=== PATIENT | female | born 1995 | race African-American/Black ===

== ENCOUNTER 2016-07-10 07:24 | Emergency (ER) | payer OTHER ==
[2016-07-10 08:37] LABS: BASO % 0.4 % (0.0-1.0); EOS # 0.4 K/mm3 (0.0-0.50); LARGE UNSTAINED CELL # 0.1 K/mm3 (0.0-0.4); LYMPH % 21.2 % (24.0-44.0); MEAN CORPUSCULAR HEMOGLOBIN 25.3 pg (27.0-33.0); MEAN CORPUSCULAR HGB CONC 31.5 g/dl (32.0-36.5); MEAN CORPUSCULAR VOLUME 80.4 fl (80.0-96.0); MONO # 0.5 K/mm3 (0.0-0.8); MONO % 5.4 % (0.0-5.0); NEUTROPHILS % 67.9 % (36.0-66.0); PLATELET COUNT, AUTOMATED 360 k/mm3 (150-450); WHITE BLOOD COUNT 8.9 K/mm3 (4.0-10.0)
[2016-07-10 08:57] LABS: ALBUMIN 4.1 GM/DL (3.2-5.2); ALBUMIN/GLOBULIN RATIO 0.91 (1.00-1.93); ALKALINE PHOSPHATASE 68 U/L (45-117); ALT/SGPT 23 U/L (12-78); ANION GAP 9 MEQ/L (8-16); AST/SGOT 14 U/L (15-37); BILIRUBIN,DIRECT 0.2 MG/DL (0.0-0.2); BILIRUBIN,TOTAL 1.1 MG/DL (0.2-1.0); BLOOD UREA NITROGEN 13 MG/DL (7-18); CALCIUM LEVEL 9.2 MG/DL (8.5-10.1); CARBON DIOXIDE LEVEL 26 MEQ/L (21-32); CHLORIDE LEVEL 107 MEQ/L (98-107); CREATININE FOR GFR 0.76 MG/DL (0.55-1.02); GLUCOSE, FASTING 82 MG/DL (70-105); POTASSIUM SERUM 3.6 MEQ/L (3.5-5.1); SODIUM LEVEL 142 MEQ/L (136-145); TOTAL PROTEIN 8.6 GM/DL (6.4-8.2)
--- NOTE | 2016-07-10 10:11 | REP ---
Pelvic ultrasound including transabdominal, endovaginal and Doppler ultrasound assessment, emergency room request: The there are no comparisons. The there is no fluid in the urinary bladder, therefore the transabdominal images are suboptimal. On the transvaginal images the uterus is retroverted and normal size measuring 8.9 x 5.8 x 7.3 cm. The endometrium borderline thickened measuring 12 mm. with a heterogeneous appearance, likely hyperplasia. The ovaries are normal size. Right ovary is 3.6 x 3.0 x 3.9 cm. Left ovary is 1.8 x 2.3 x 1.8 cm. There is a right ovarian 2.6 cm cyst. There is no dominant mass or cyst in the left ovary. There is vascular flow in both ovaries with the Doppler resistive index of the intraparenchymal arteries on the right measuring 0.53. Nonetheless 0.44. There is a trace of free fluid adjacent to the ovaries. Signed by Lavell Castaneda MD 07/10/2016 10:03 A
--- NOTE | 2016-07-10 11:35 | EDDOCDS ---
Nurse's Notes [facility] Name: Kaia Senior Age: 20 yrs Sex: Female : 1995 Arrival Date: 07/10/2016 Time: 07:24 Bed 7 Private MD: Diagnosis: Other specified abnormal uterine and vaginal bleeding;Unspecified complication following complete or unspecified spontaneous Presentation: 07/10 07:52 Presenting complaint: Patient states: Vaginal bleeding since having an one dwg week ago, this AM started passing large clots and pelvic pain since last night. Adult Sepsis Screening: The patient does not have new or worsening altered mentation. Patient's respiratory rate is less than 22. Systolic blood pressure is greater than 100. Patient has a qSOFA score of 0- Negative Sepsis Screen. Suicide/Homicide risk assessment- the patient denies having any suicidal and/or homicidal ideations and does not present with any other emotional, behavioral or mental health complaints. 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 Transition of care: patient was received from Sick call on [place]. 07:52 Acuity: ELENITA Level 3 dwg 07:52 Method Of Arrival: Walkin/Carried/Asstd dwg Triage Assessment: 07:55 General: Appears in no apparent distress. Pain: Pain currently is 5 out of 10 on a pain dwg scale. Pt Declines HIV testing. 11:34 GI: Reports none. 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 none - PMHx: none; - PSHx: 07/03/16; - Social history: Smoking status: Patient states was never smoker of tobacco. No barriers to communication noted, The patient speaks fluent Chilean. - Family history: Not pertinent. - : The pt / caregiver states he / she is not on anticoagulants. Home medication list is obtained from the patient. - Exposure Risk Screening:: None identified. Screenin:34 Screening information is obtained from the patient. Fall risk: No risks identified. jo3 Assistance ADL's: requires no assistance with activities of daily living. Abuse/DV Screen: The patient / caregiver reports he/she is: not in a situation that causes fear, pain or injury. Nutritional screening: No deficits noted. Advance Directives: There is no active DNR order. home support is adequate. Assessment: 08:10 General: Appears comfortable, well developed, well nourished, well groomed, Behavior is kcs cooperative, pleasant. Pain: Location: abdomen. Neurological: Level of Consciousness is awake, alert. Respiratory: Airway is patent Respiratory effort is even, unlabored, Respiratory pattern is regular, symmetrical. Derm: Skin is intact, is healthy with good turgor, Skin is dry, Skin is pink, warm & dry. normal. 08:10 GI: Abdomen is flat, Bowel sounds present X 4 quads. Abd is soft and non tender X 4 kcs quads. 09:20 General: Appears in no apparent distress, comfortable, well developed, well nourished, jo3 well groomed, Behavior is appropriate for age, cooperative, pleasant. General: Taken to ultrasound at this time . Neurological: Level of Consciousness is awake, alert. Respiratory: Airway is patent Respiratory effort is even, unlabored. Derm: Skin Skin is pink, warm & dry. 10:20 Reassessment: Patient appears in no apparent distress at this time. Patient denies pain jo3 at this time. Resting on stretcher following pelvic exam. tolerated well. Awaiting results for disposition at this time. Aware of plan of care . 11:33 General: Appears in no apparent distress, comfortable, well developed, well nourished, jo3 well groomed, Behavior is appropriate for age, cooperative, pleasant. Neurological: Level of Consciousness is awake, alert, Oriented to person, place, time. Respiratory: Airway is patent Respiratory effort is even, unlabored. Derm: Skin is pink, warm & dry. Vital Signs: 07:55 BP 129 / 78; Pulse 97; Resp 20; Temp 98.9(O); Pulse Ox 97% on R/A; Weight 53.52 kg; dwg Height 5 ft. 7 in. (170.18 cm); Pain 6/10; 11:33 BP 122 / 74; Pulse 84; Resp 16; Temp 98.4(O); Pulse Ox 98% on R/A; Pain 0/10; ml6 07:55 Body Mass Index 18.48 (53.52 kg, 170.18 cm) [facility] Vitals: 07:55 Log In Time: July 10, 2016 at 07:26. [facility] ED Course: 07:26 Patient visited by Portillo, Barby, Reg. hs2 07:26 Patient moved to Waiting hs2 07:51 Patient moved to Triage 1 dwg 07:55 Triage Initiated dwg 07:58 Patient moved to 7 dwg 08:20 Basic Metabolic Profile Sent. kcs 08:20 CBC with Diff Sent. kcs 08:20 Lipase Sent. kcs 08:20 Liver Profile Sent. kcs 08:34 Fara Truong MD is Attending Physician. fg 08:34 Patient visited by Fara Truong MD. fg 09:13 Patient visited by Kimberly Pacheco PCA. ct3 09:23 Patient moved to Ultrasound am10 09:26 Report given to Eleanor Howard RN. kcs 09:35 Patient visited by Bridgett Howard RN. jo3 09:36 Urinalysis Sent. dem1 09:36 Urine Culture Sent. dem1 09:40 Patient moved to 7 dem1 09:49 Patient name changed from Kaia\S\\S\Flagler\S\ to Kaia\S\Shayon\S\Nadeen. EDMS 09:50 [facility] Payment Agreement was scanned into [facility] and attached to record. lg 10:15 Assist provider with pelvic exam: Set up pelvic tray. Specimens sent to lab. Performed jo3 by Fara Truong MD Patient tolerated well. 10:17 -US Pelvic Non-Ob Complete Returned. EDMS 10:34 The patient / caregiver is instructed regarding the plan of care and ED course. jo3 10:35 Patient visited by Bridgett Howard,BEBO. jo3 11:10 Patient visited by Kimberly Pacheco PCA. ct3 11:10 Lavell Foster MD is Referral Physician. fg 11:33 Discontinued IV bleeding controlled, pressure dressing applied, No redness/swelling at ml6 site. Order Results: Lab Order: Basic Metabolic Profile; SPEC'M 07/10/16 08:14 Test: GLUCOSE, FASTING; Value: 82; Range: 70-105; Units: MG/DL; Status: F Test: BLOOD UREA NITROGEN; Value: 13; Range: 7-18; Units: MG/DL; Status: F Test: CREATININE FOR GFR; Value: 0.76; Range: 0.55-1.02; Units: MG/DL; Status: F Test: SODIUM LEVEL; Value: 142; Range: 136-145; Units: MEQ/L; Status: F Test: POTASSIUM SERUM; Value: 3.6; Range: 3.5-5.1; Units: MEQ/L; Status: F Test: CHLORIDE LEVEL; Value: 107; Range: 98-107; Units: MEQ/L; Status: F Test: CARBON DIOXIDE LEVEL; Value: 26; Range: 21-32; Units: MEQ/L; Status: F Test: ANION GAP; Value: 9; Range: 8-16; Units: MEQ/L; Status: F Test: CALCIUM LEVEL; Value: 9.2; Range: 8.5-10.1; Units: MG/DL; Status: F Lab Order: CBC with Diff; SPEC'M 07/10/16 08:14 Test: WHITE BLOOD COUNT; Value: 8.9; Range: 4.0-10.0; Units: K/mm3; Status: F Test: RED BLOOD COUNT; Value: 4.41; Range: 4.00-5.40; Units: M/mm3; Status: F Test: HEMOGLOBIN; Value: 11.2; Range: 12.0-16.0; Abnormal: Below low normal; Units: g/dl; Status: F Test: HEMATOCRIT; Value: 35.5; Range: 36.0-47.0; Abnormal: Below low normal; Units: %; Status: F Test: MEAN CORPUSCULAR VOLUME; Value: 80.4; Range: 80.0-96.0; Units: fl; Status: F Test: MEAN CORPUSCULAR HEMOGLOBIN; Value: 25.3; Range: 27.0-33.0; Abnormal: Below low normal; Units: pg; Status: F Test: MEAN CORPUSCULAR HGB CONC; Value: 31.5; Range: 32.0-36.5; Abnormal: Below low normal; Units: g/dl; Status: F Test: RED CELL DISTRIBUTION WIDTH; Value: 16.0; Range: 11.5-14.5; Abnormal: Above high normal; Units: %; Status: F Test: PLATELET COUNT, AUTOMATED; Value: 360; Range: 150-450; Units: k/mm3; Status: F Test: NEUTROPHILS %; Value: 67.9; Range: 36.0-66.0; Abnormal: Above high normal; Units: %; Status: F Test: LYMPH %; Value: 21.2; Range: 24.0-44.0; Abnormal: Below low normal; Units: %; Status: F Test: MONO %; Value: 5.4; Range: 0.0-5.0; Abnormal: Above high normal; Units: %; Status: F Test: EOS %; Value: 4.0; Range: 0.0-3.0; Abnormal: Above high normal; Units: %; Status: F Test: BASO %; Value: 0.4; Range: 0.0-1.0; Units: %; Status: F Test: LARGE UNSTAINED CELL %; Value: 1.0; Range: 0.0-4.0; Units: %; Status: F Test: NEUTROPHILS #; Value: 6.0; Range: 1.8-7.7; Units: K/mm3; Status: F Test: LYMPH #; Value: 2.0; Range: 1.5-6.5; Units: K/mm3; Status: F Test: MONO #; Value: 0.5; Range: 0.0-0.8; Units: K/mm3; Status: F Test: EOS #; Value: 0.4; Range: 0.0-0.50; Units: K/mm3; Status: F Test: BASO #; Value: 0.0; Range: 0.0-0.2; Units: K/mm3; Status: F Test: LARGE UNSTAINED CELL #; Value: 0.1; Range: 0.0-0.4; Units: K/mm3; Status: F Lab Order: Lipase; SPEC'M 07/10/16 08:14 Test: LIPASE; Value: 162; Range: 73-393; Units: U/L; Status: F Lab Order: Liver Profile; SPEC'M 07/10/16 08:14 Test: AST/SGOT; Value: 14; Range: 15-37; Abnormal: Below low normal; Units: U/L; Status: F Test: ALT/SGPT; Value: 23; Range: 12-78; Units: U/L; Status: F Test: ALKALINE PHOSPHATASE; Value: 68; Range: 45-117; Units: U/L; Status: F Test: BILIRUBIN,TOTAL; Value: 1.1; Range: 0.2-1.0; Abnormal: Above high normal; Units: MG/DL; Status: F Test: BILIRUBIN,DIRECT; Value: 0.2; Range: 0.0-0.2; Units: MG/DL; Status: F Test: TOTAL PROTEIN; Value: 8.6; Range: 6.4-8.2; Abnormal: Above high normal; Units: GM/DL; Status: F Test: ALBUMIN; Value: 4.1; Range: 3.2-5.2; Units: GM/DL; Status: F Test: ALBUMIN/GLOBULIN RATIO; Value: 0.91; Range: 1.00-1.93; Abnormal: Below low normal; Status: F Lab Order: Urinalysis; SPEC'M 07/10/16 09:32 Test: APPEARANCE, URINE; Value: HAZY; Range: CLEAR; Status: F Test: COLOR, URINE; Value: YELLOW; Range: YELLOW; Status: F Test: PH,URINE; Value: 7.0; Range: 5.0-9.0; Units: UNITS; Status: F Test: SPECIFIC GRAVITY URINE AUTO; Value: 1.020; Range: 1.002-1.035; Status: F Test: PROTEIN, URINE AUTO; Value: NEGATIVE; Range: NEGATIVE; Units: mg/dL; Status: F Test: GLUCOSE, URINE (UA) AUTO; Value: NEGATIVE; Range: NEGATIVE; Units: mg/dL; Status: F Test: KETONE, URINE AUTO; Value: NEGATIVE; Range: NEGATIVE; Units: mg/dL; Status: F Test: UROBILINOGEN, URINE AUTO; Value: 2.0; Range: 0.0-2.0; Abnormal: Above high normal; Units: mg/dL; Status: F Test: BILIRUBIN, URINE AUTO; Value: NEGATIVE; Range: NEGATIVE; Status: F Test: NITRITE, URINE AUTO; Value: NEGATIVE; Range: NEGATIVE; Status: F Test: LEUKOCYTE ESTERASE, URINE AUTO; Value: NEGATIVE; Range: NEGATIVE; Status: F Test: BLOOD, URINE BLOOD; Value: 2+; Range: NEGATIVE; Abnormal: Above high normal; Status: F Test: WBC, URINE AUTO; Value: 2; Range: 0-3; Units: /HPF; Status: F Test: RBC, URINE AUTO; Value: 55; Range: 0-3; Abnormal: Above high normal; Units: /HPF; Status: F Test: BACTERIA, URINE AUTO; Value: NEGATIVE; Range: NEGATIVE; Status: F Test: SQUAMOUS EPITHELIAL CELL UR AU; Value: 1; Range: 0-6; Units: /HPF; Status: F Test: MUCUS, URINE; Value: SMALL; Range: NEGATIVE; Status: F Test: HYALINE CAST, URINE AUTO; Value: 0; Range: 0-1; Units: /LPF; Status: F Test: AMORPHOUS SEDIMENT; Value: SMALL; Range: NEGATIVE; Abnormal: Above high normal; Status: F Lab Order: Wet Prep; SPEC'M 07/10/16 10:26 Test: WET PREP; Value: WET PREP RESULT; Status: F Test: WET PREP; Value: MANY RBC; Status: F Test: WET PREP; Value: FEW EPITHELIAL CELLS PRESENT; Status: F Test: WET PREP; Value: FEW WBC; Status: F Radiology Order: -US Pelvic Non-Ob Complete Test: -US Pelvic Non-Ob Complete REASON FOR EXAMINATION: Abdomen Pain; Pelvic ultrasound including transabdominal, endovaginal and Doppler ultrasound; assessment, emergency room request:; ; The there are no comparisons.; ; The there is no fluid in the urinary bladder, therefore the transabdominal images; are suboptimal.; ; On the transvaginal images the uterus is retroverted and normal size measuring; 8.9 x 5.8 x 7.3 cm.; ; The endometrium borderline thickened measuring 12 mm. with a heterogeneous; appearance, likely hyperplasia.; ; The ovaries are normal size.; Right ovary is 3.6 x 3.0 x 3.9 cm.; Left ovary is 1.8 x 2.3 x 1.8 cm.; ; There is a right ovarian 2.6 cm cyst. There is no dominant mass or cyst in the; left ovary.; ; There is vascular flow in both ovaries with the Doppler resistive index of the; intraparenchymal arteries on the right measuring 0.53. Nonetheless 0.44.; ; There is a trace of free fluid adjacent to the ovaries.; ; ; Signed by; Lavell Castaneda MD 07/10/2016 10:03 A; Outcome: 11:11 Discharge ordered by Provider. fg 11:33 Discharge Assessment: patient administered narcotics - no. The following High Risk 6 Discharge criteria are identified: None. Discharged to home ambulatory. Condition: stable. Discharge instructions given to patient, Instructed on discharge instructions, follow up and referral plans. medication usage, Demonstrated understanding of instructions, medications, Pt was receptive of discharge instructions/ teaching. Ultrasound Study completed. Property sent home with patient. :Personal belongings accompany Pt. 11:34 Patient left the ED. ml6 Signatures: Dispatcher [employer] EDMS Brissa Jurado, RN RN Lavell Lubin RN RN Danika Shah, Reg Reg lg Bridgett HowardRN RN [email or web address] Mayra Simons am10 David Llanos RN RN ml6 Kimberly Pacheco, FINAL EXPENSE AGENT FINAL EXPENSE AGENT ct3 Karlos Troncoso1 Fara Truong MD MD Barby Portillo, Reg Reg hs2 MTDD
--- NOTE | 2016-07-10 11:35 | EDDOCDS ---
Physician Documentation [facility] Name: Kaia Senior Age: 20 yrs Sex: Female : 1995 Arrival Date: 07/10/2016 Time: 07:24 Bed 7 Private MD: Disposition: 07/10/16 11:11 Discharged to Home/Self Care. Impression: Other specified abnormal uterine and vaginal bleeding, Unspecified complication following complete or unspecified spontaneous . - Condition is Stable. - Discharge Instructions: Miscarriage, [id number]. - Medication Reconciliation, Local Pharmacy Hours form. - Follow up: Lavell Foster MD; When: Call to arrange an appointment; Reason: Continuance of care. - Problem is new. - Symptoms have improved. Historical: - Allergies: no known allergies; - Home Meds: 1. none - PMHx: none; - PSHx: 07/03/16; - Social history: Smoking status: Patient states was never smoker of tobacco. No barriers to communication noted, The patient speaks fluent Marshallese. - Family history: Not pertinent. - : The pt / caregiver states he / she is not on anticoagulants. Home medication list is obtained from the patient. - Exposure Risk Screening:: None identified. 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 7 in. (170.18 cm); Pain 6/10; 11:33 BP 122 / 74; Pulse 84; Resp 16; Temp 98.4(O); Pulse Ox 98% on R/A; Pain 0/10; ml6 07:55 Body Mass Index 18.48 (53.52 kg, 170.18 cm) dwg MDM: 08:13 Undress patient appropriately for examination ordered. fg 08:14 Basic Metabolic Profile Ordered. EDMS 08:14 CBC with Diff Ordered. EDMS 08:14 Lipase Ordered. EDMS 08:14 Liver Profile Ordered. EDMS 08:14 Urinalysis Ordered. EDMS 08:14 Urine Culture Ordered. EDMS 08:14 NOTHING BY MOUTH+DIET ordered. EDMS 08:57 Set up pelvic ordered. fg 08:58 Wet Prep Ordered. EDMS 08:58 -US Pelvic Non-Ob Complete Ordered. EDMS 08:58 GC & Chlamydia Amplification Ordered. EDMS 09:00 Financial registration complete. lg 09:43 Transvaginal NON- US Ordered. EDMS 09:43 DUPLEX SCAN LIMITED (DOPPLER) Ordered. EDMS 09:50 [facility] Payment Agreement was scanned into [employer] and attached to record. lg Signatures: Dispatcher [employer] EDMS Brissa Jurado, RN RN Lavell Lubin RN RN dwg Danika Pace, Reg Reg David Llanos RN RN ml6 Fara Truong MD MD fg The chart was reviewed and I authenticate all verbal orders and agree with the evaluation and treatment provided.Corrections: (The following items were deleted from the chart) 08:23 08:14 HCG, QUALITATIVE+LAB ordered. EDMS EDMS Attachments: 09:50 [facility] Payment Agreement lg MTDD
--- NOTE | 2016-07-12 12:34 | EDDOCDS ---
Nurse's Notes [facility] Name: Kaia Senior Age: 20 yrs Sex: Female : 1995 Arrival Date: 07/10/2016 Time: 07:24 Bed 7 Private MD: Diagnosis: Other specified abnormal uterine and vaginal bleeding;Unspecified complication following complete or unspecified spontaneous Presentation: 07/10 07:52 Presenting complaint: Patient states: Vaginal bleeding since having an one dwg week ago, this AM started passing large clots and pelvic pain since last night. Adult Sepsis Screening: The patient does not have new or worsening altered mentation. Patient's respiratory rate is less than 22. Systolic blood pressure is greater than 100. Patient has a qSOFA score of 0- Negative Sepsis Screen. Suicide/Homicide risk assessment- the patient denies having any suicidal and/or homicidal ideations and does not present with any other emotional, behavioral or mental health complaints. 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 Transition of care: patient was received from Sick call on [place]. 07:52 Acuity: ELENITA Level 3 dwg 07:52 Method Of Arrival: Walkin/Carried/Asstd dwg Triage Assessment: 07:55 General: Appears in no apparent distress. Pain: Pain currently is 5 out of 10 on a pain dwg scale. Pt Declines HIV testing. 11:34 GI: Reports none. 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 none - PMHx: none; - PSHx: 07/03/16; - Social history: Smoking status: Patient states was never smoker of tobacco. No barriers to communication noted, The patient speaks fluent Palestinian. - Family history: Not pertinent. - : The pt / caregiver states he / she is not on anticoagulants. Home medication list is obtained from the patient. - Exposure Risk Screening:: None identified. Screenin:34 Screening information is obtained from the patient. Fall risk: No risks identified. jo3 Assistance ADL's: requires no assistance with activities of daily living. Abuse/DV Screen: The patient / caregiver reports he/she is: not in a situation that causes fear, pain or injury. Nutritional screening: No deficits noted. Advance Directives: There is no active DNR order. home support is adequate. Assessment: 08:10 General: Appears comfortable, well developed, well nourished, well groomed, Behavior is kcs cooperative, pleasant. Pain: Location: abdomen. Neurological: Level of Consciousness is awake, alert. Respiratory: Airway is patent Respiratory effort is even, unlabored, Respiratory pattern is regular, symmetrical. Derm: Skin is intact, is healthy with good turgor, Skin is dry, Skin is pink, warm & dry. normal. 08:10 GI: Abdomen is flat, Bowel sounds present X 4 quads. Abd is soft and non tender X 4 kcs quads. 09:20 General: Appears in no apparent distress, comfortable, well developed, well nourished, jo3 well groomed, Behavior is appropriate for age, cooperative, pleasant. General: Taken to ultrasound at this time . Neurological: Level of Consciousness is awake, alert. Respiratory: Airway is patent Respiratory effort is even, unlabored. Derm: Skin Skin is pink, warm & dry. 10:20 Reassessment: Patient appears in no apparent distress at this time. Patient denies pain jo3 at this time. Resting on stretcher following pelvic exam. tolerated well. Awaiting results for disposition at this time. Aware of plan of care . 11:33 General: Appears in no apparent distress, comfortable, well developed, well nourished, jo3 well groomed, Behavior is appropriate for age, cooperative, pleasant. Neurological: Level of Consciousness is awake, alert, Oriented to person, place, time. Respiratory: Airway is patent Respiratory effort is even, unlabored. Derm: Skin is pink, warm & dry. Vital Signs: 07:55 BP 129 / 78; Pulse 97; Resp 20; Temp 98.9(O); Pulse Ox 97% on R/A; Weight 53.52 kg; dwg Height 5 ft. 7 in. (170.18 cm); Pain 6/10; 11:33 BP 122 / 74; Pulse 84; Resp 16; Temp 98.4(O); Pulse Ox 98% on R/A; Pain 0/10; ml6 07:55 Body Mass Index 18.48 (53.52 kg, 170.18 cm) [facility] Vitals: 07:55 Log In Time: July 10, 2016 at 07:26. [facility] ED Course: 07:26 Patient visited by Portillo, Barby, Reg. hs2 07:26 Patient moved to Waiting hs2 07:51 Patient moved to Triage 1 dwg 07:55 Triage Initiated dwg 07:58 Patient moved to 7 dwg 08:20 Basic Metabolic Profile Sent. kcs 08:20 CBC with Diff Sent. kcs 08:20 Lipase Sent. kcs 08:20 Liver Profile Sent. kcs 08:34 Fara Truong MD is Attending Physician. fg 08:34 Patient visited by Fara Truong MD. fg 09:13 Patient visited by Kimberly Pacheco PCA. ct3 09:23 Patient moved to Ultrasound am10 09:26 Report given to Eleanor Howard RN. kcs 09:35 Patient visited by Bridgett Howard RN. jo3 09:36 Urinalysis Sent. dem1 09:36 Urine Culture Sent. dem1 09:40 Patient moved to 7 dem1 09:49 Patient name changed from Kaia\S\\S\Lynn\S\ to Kaia\S\Shayon\S\Nadeen. EDMS 09:50 [facility] [place] Agreement was scanned into [employer] and attached to record. lg 10:15 Assist provider with pelvic exam: Set up pelvic tray. Specimens sent to lab. Performed jo3 by Fara Truong MD Patient tolerated well. 10:17 -US Pelvic Non-Ob Complete Returned. EDMS 10:34 The patient / caregiver is instructed regarding the plan of care and ED course. jo3 10:35 Patient visited by Bridgett Howard,BEBO. jo3 11:10 Patient visited by Kimberly Pacheco PCA. ct3 11:10 Lavell Foster MD is Referral Physician. fg 11:33 Discontinued IV bleeding controlled, pressure dressing applied, No redness/swelling at ml6 site. 15:05 T-Sheet-- Draft Copy was scanned into [employer] and attached to record. gb Order Results: Lab Order: Basic Metabolic Profile; SPEC'M 07/10/16 08:14 Test: GLUCOSE, FASTING; Value: 82; Range: 70-105; Units: MG/DL; Status: F Test: BLOOD UREA NITROGEN; Value: 13; Range: 7-18; Units: MG/DL; Status: F Test: CREATININE FOR GFR; Value: 0.76; Range: 0.55-1.02; Units: MG/DL; Status: F Test: SODIUM LEVEL; Value: 142; Range: 136-145; Units: MEQ/L; Status: F Test: POTASSIUM SERUM; Value: 3.6; Range: 3.5-5.1; Units: MEQ/L; Status: F Test: CHLORIDE LEVEL; Value: 107; Range: 98-107; Units: MEQ/L; Status: F Test: CARBON DIOXIDE LEVEL; Value: 26; Range: 21-32; Units: MEQ/L; Status: F Test: ANION GAP; Value: 9; Range: 8-16; Units: MEQ/L; Status: F Test: CALCIUM LEVEL; Value: 9.2; Range: 8.5-10.1; Units: MG/DL; Status: F Lab Order: CBC with Diff; SPEC'M 07/10/16 08:14 Test: WHITE BLOOD COUNT; Value: 8.9; Range: 4.0-10.0; Units: K/mm3; Status: F Test: RED BLOOD COUNT; Value: 4.41; Range: 4.00-5.40; Units: M/mm3; Status: F Test: HEMOGLOBIN; Value: 11.2; Range: 12.0-16.0; Abnormal: Below low normal; Units: g/dl; Status: F Test: HEMATOCRIT; Value: 35.5; Range: 36.0-47.0; Abnormal: Below low normal; Units: %; Status: F Test: MEAN CORPUSCULAR VOLUME; Value: 80.4; Range: 80.0-96.0; Units: fl; Status: F Test: MEAN CORPUSCULAR HEMOGLOBIN; Value: 25.3; Range: 27.0-33.0; Abnormal: Below low normal; Units: pg; Status: F Test: MEAN CORPUSCULAR HGB CONC; Value: 31.5; Range: 32.0-36.5; Abnormal: Below low normal; Units: g/dl; Status: F Test: RED CELL DISTRIBUTION WIDTH; Value: 16.0; Range: 11.5-14.5; Abnormal: Above high normal; Units: %; Status: F Test: PLATELET COUNT, AUTOMATED; Value: 360; Range: 150-450; Units: k/mm3; Status: F Test: NEUTROPHILS %; Value: 67.9; Range: 36.0-66.0; Abnormal: Above high normal; Units: %; Status: F Test: LYMPH %; Value: 21.2; Range: 24.0-44.0; Abnormal: Below low normal; Units: %; Status: F Test: MONO %; Value: 5.4; Range: 0.0-5.0; Abnormal: Above high normal; Units: %; Status: F Test: EOS %; Value: 4.0; Range: 0.0-3.0; Abnormal: Above high normal; Units: %; Status: F Test: BASO %; Value: 0.4; Range: 0.0-1.0; Units: %; Status: F Test: LARGE UNSTAINED CELL %; Value: 1.0; Range: 0.0-4.0; Units: %; Status: F Test: NEUTROPHILS #; Value: 6.0; Range: 1.8-7.7; Units: K/mm3; Status: F Test: LYMPH #; Value: 2.0; Range: 1.5-6.5; Units: K/mm3; Status: F Test: MONO #; Value: 0.5; Range: 0.0-0.8; Units: K/mm3; Status: F Test: EOS #; Value: 0.4; Range: 0.0-0.50; Units: K/mm3; Status: F Test: BASO #; Value: 0.0; Range: 0.0-0.2; Units: K/mm3; Status: F Test: LARGE UNSTAINED CELL #; Value: 0.1; Range: 0.0-0.4; Units: K/mm3; Status: F Lab Order: Lipase; SPEC'M 07/10/16 08:14 Test: LIPASE; Value: 162; Range: 73-393; Units: U/L; Status: F Lab Order: Liver Profile; SPEC07/10/16 08:14 Test: AST/SGOT; Value: 14; Range: 15-37; Abnormal: Below low normal; Units: U/L; Status: F Test: ALT/SGPT; Value: 23; Range: 12-78; Units: U/L; Status: F Test: ALKALINE PHOSPHATASE; Value: 68; Range: 45-117; Units: U/L; Status: F Test: BILIRUBIN,TOTAL; Value: 1.1; Range: 0.2-1.0; Abnormal: Above high normal; Units: MG/DL; Status: F Test: BILIRUBIN,DIRECT; Value: 0.2; Range: 0.0-0.2; Units: MG/DL; Status: F Test: TOTAL PROTEIN; Value: 8.6; Range: 6.4-8.2; Abnormal: Above high normal; Units: GM/DL; Status: F Test: ALBUMIN; Value: 4.1; Range: 3.2-5.2; Units: GM/DL; Status: F Test: ALBUMIN/GLOBULIN RATIO; Value: 0.91; Range: 1.00-1.93; Abnormal: Below low normal; Status: F Lab Order: Urinalysis; SPEC'M 07/10/16 09:32 Test: APPEARANCE, URINE; Value: HAZY; Range: CLEAR; Status: F Test: COLOR, URINE; Value: YELLOW; Range: YELLOW; Status: F Test: PH,URINE; Value: 7.0; Range: 5.0-9.0; Units: UNITS; Status: F Test: SPECIFIC GRAVITY URINE AUTO; Value: 1.020; Range: 1.002-1.035; Status: F Test: PROTEIN, URINE AUTO; Value: NEGATIVE; Range: NEGATIVE; Units: mg/dL; Status: F Test: GLUCOSE, URINE (UA) AUTO; Value: NEGATIVE; Range: NEGATIVE; Units: mg/dL; Status: F Test: KETONE, URINE AUTO; Value: NEGATIVE; Range: NEGATIVE; Units: mg/dL; Status: F Test: UROBILINOGEN, URINE AUTO; Value: 2.0; Range: 0.0-2.0; Abnormal: Above high normal; Units: mg/dL; Status: F Test: BILIRUBIN, URINE AUTO; Value: NEGATIVE; Range: NEGATIVE; Status: F Test: NITRITE, URINE AUTO; Value: NEGATIVE; Range: NEGATIVE; Status: F Test: LEUKOCYTE ESTERASE, URINE AUTO; Value: NEGATIVE; Range: NEGATIVE; Status: F Test: BLOOD, URINE BLOOD; Value: 2+; Range: NEGATIVE; Abnormal: Above high normal; Status: F Test: WBC, URINE AUTO; Value: 2; Range: 0-3; Units: /HPF; Status: F Test: RBC, URINE AUTO; Value: 55; Range: 0-3; Abnormal: Above high normal; Units: /HPF; Status: F Test: BACTERIA, URINE AUTO; Value: NEGATIVE; Range: NEGATIVE; Status: F Test: SQUAMOUS EPITHELIAL CELL UR AU; Value: 1; Range: 0-6; Units: /HPF; Status: F Test: MUCUS, URINE; Value: SMALL; Range: NEGATIVE; Status: F Test: HYALINE CAST, URINE AUTO; Value: 0; Range: 0-1; Units: /LPF; Status: F Test: AMORPHOUS SEDIMENT; Value: SMALL; Range: NEGATIVE; Abnormal: Above high normal; Status: F Lab Order: Urine Culture; SPEC'M 07/10/16 09:32 Test: URINE CULTURE; Value: <EXTERNAL COMMENT eCWMed> FULL REPORT IN LAB NOTES (eCW and Medent).; Status: F Test: URINE CULTURE; Value: URINE CULTURE RESULT NO GROWTH CLINICAL SIGNIFICANCE 1 ORGANISM; Status: F Lab Order: Wet Prep; SPEC'M 07/10/16 10:26 Test: WET PREP; Value: WET PREP RESULT; Status: F Test: WET PREP; Value: MANY RBC; Status: F Test: WET PREP; Value: FEW EPITHELIAL CELLS PRESENT; Status: F Test: WET PREP; Value: FEW WBC; Status: F Lab Order: GC & Chlamydia Amplification; SPEC'M 07/10/16 10:26 Test: CHLAMYDIA DNA AMPLIFICATION; Value: NEGATIVE; Range: NEGATIVE; Status: F Test: GC DNA AMPLIFICATION; Value: NEGATIVE; Range: NEGATIVE; Status: F Radiology Order: -US Pelvic Non-Ob Complete Test: -US Pelvic Non-Ob Complete REASON FOR EXAMINATION: Abdomen Pain; Pelvic ultrasound including transabdominal, endovaginal and Doppler ultrasound; assessment, emergency room request:; ; The there are no comparisons.; ; The there is no fluid in the urinary bladder, therefore the transabdominal images; are suboptimal.; ; On the transvaginal images the uterus is retroverted and normal size measuring; 8.9 x 5.8 x 7.3 cm.; ; The endometrium borderline thickened measuring 12 mm. with a heterogeneous; appearance, likely hyperplasia.; ; The ovaries are normal size.; Right ovary is 3.6 x 3.0 x 3.9 cm.; Left ovary is 1.8 x 2.3 x 1.8 cm.; ; There is a right ovarian 2.6 cm cyst. There is no dominant mass or cyst in the; left ovary.; ; There is vascular flow in both ovaries with the Doppler resistive index of the; intraparenchymal arteries on the right measuring 0.53. Nonetheless 0.44.; ; There is a trace of free fluid adjacent to the ovaries.; ; ; Signed by; Lavell Castaneda MD 07/10/2016 10:03 A; Outcome: 11:11 Discharge ordered by Provider. fg 11:33 Discharge Assessment: patient administered narcotics - no. The following High Risk ml6 Discharge criteria are identified: None. Discharged to home ambulatory. Condition: stable. Discharge instructions given to patient, Instructed on discharge instructions, follow up and referral plans. medication usage, Demonstrated understanding of instructions, medications, Pt was receptive of discharge instructions/ teaching. Ultrasound Study completed. Property sent home with patient. :Personal belongings accompany Pt. 11:34 Patient left the ED. ml6 Signatures: Dispatcher [employer] EDMS Brissa Jurado, RN RN Lavell Lubin, RN RN dwg Mackenzie Navarro, Reg Reg gb Danika Pace, Reg Reg lg Bridgett HowardRN RN Mayra Mobley Matthew, RN RN ml6 Kimberly Pacheco, FAMILY PRACTITIONER FAMILY PRACTITIONER ct3 Karlos Troncoso dem1 Fara Truong MD MD Barby Portillo, Reg Reg hs2 Chart Complete MTDD
--- NOTE | 2016-07-12 12:34 | EDDOCDS ---
Physician Documentation [facility] Name: Kaia Senior Age: 20 yrs Sex: Female : 1995 Arrival Date: 07/10/2016 Time: 07:24 Bed 7 Private MD: Disposition: 07/10/16 11:11 Discharged to Home/Self Care. Impression: Other specified abnormal uterine and vaginal bleeding, Unspecified complication following complete or unspecified spontaneous . - Condition is Stable. - Discharge Instructions: Miscarriage, [id number]. - Medication Reconciliation, Local Pharmacy Hours form. - Follow up: Lavell Foster MD; When: Call to arrange an appointment; Reason: Continuance of care. - Problem is new. - Symptoms have improved. Historical: - Allergies: no known allergies; - Home Meds: 1. none - PMHx: none; - PSHx: 07/03/16; - Social history: Smoking status: Patient states was never smoker of tobacco. No barriers to communication noted, The patient speaks fluent Hungarian. - Family history: Not pertinent. - : The pt / caregiver states he / she is not on anticoagulants. Home medication list is obtained from the patient. - Exposure Risk Screening:: None identified. SAFETY TECH: 07/10 07:55 LMP 04/28/2016 dwg Vital Signs: 07:55 BP 129 / 78; Pulse 97; Resp 20; Temp 98.9(O); Pulse Ox 97% on R/A; Weight 53.52 kg / dwg 117.99 lbs; Height 5 ft. 7 in. (170.18 cm); Pain 6/10; 11:33 BP 122 / 74; Pulse 84; Resp 16; Temp 98.4(O); Pulse Ox 98% on R/A; Pain 0/10; ml6 07:55 Body Mass Index 18.48 (53.52 kg, 170.18 cm) dwg MDM: 08:13 Undress patient appropriately for examination ordered. fg 08:14 Basic Metabolic Profile Ordered. EDMS 08:14 CBC with Diff Ordered. EDMS 08:14 Lipase Ordered. EDMS 08:14 Liver Profile Ordered. EDMS 08:14 Urinalysis Ordered. EDMS 08:14 Urine Culture Ordered. EDMS 08:14 NOTHING BY MOUTH+DIET ordered. EDMS 08:57 Set up pelvic ordered. fg 08:58 Wet Prep Ordered. EDMS 08:58 -US Pelvic Non-Ob Complete Ordered. EDMS 08:58 GC & Chlamydia Amplification Ordered. EDMS 09:00 Financial registration complete. lg 09:43 Transvaginal NON- US Ordered. EDMS 09:43 DUPLEX SCAN LIMITED (DOPPLER) Ordered. EDMS 09:50 [facility] Payment Agreement was scanned into [employer] and attached to record. lg 15:05 T-Sheet-- Draft Copy was scanned into [employer] and attached to record. gb Signatures: Dispatcher [employer] EDMS Brissa Jurado, RN RN kcs Lavell Balderrama, RN RN dwg Mackenzie Navarro, Reg Reg gb Danika Pace, Reg Reg lg David Llanos RN RN ml6 Fara Truong MD MD fg The chart was reviewed and I authenticate all verbal orders and agree with the evaluation and treatment provided.Corrections: (The following items were deleted from the chart) 08:23 08:14 HCG, QUALITATIVE+LAB ordered. EDMS EDMS Attachments: 09:50 [facility] Payment Agreement lg 15:05 T-Sheet-- Draft Copy gb Chart Complete MTDD
--- NOTE | 2016-07-12 12:34 | EDDOCDS ---
Physician Documentation [facility] Name: Kaia Senior Age: 20 yrs Sex: Female : 1995 Arrival Date: 07/10/2016 Time: 07:24 Bed 7 Private MD: Disposition: 07/10/16 11:11 Discharged to Home/Self Care. Impression: Other specified abnormal uterine and vaginal bleeding, Unspecified complication following complete or unspecified spontaneous . - Condition is Stable. - Discharge Instructions: Miscarriage, [id number]. - Medication Reconciliation, Local Pharmacy Hours form. - Follow up: Lavell Foster MD; When: Call to arrange an appointment; Reason: Continuance of care. - Problem is new. - Symptoms have improved. Historical: - Allergies: no known allergies; - Home Meds: 1. none - PMHx: none; - PSHx: 07/03/16; - Social history: Smoking status: Patient states was never smoker of tobacco. No barriers to communication noted, The patient speaks fluent [place]. - Family history: Not pertinent. - : The pt / caregiver states he / she is not on anticoagulants. Home medication list is obtained from the patient. - Exposure Risk Screening:: None identified. PHARMACIST [facility]OSPITAL: 07/10 07:55 LMP 04/28/2016 dwg Vital Signs: 07:55 BP 129 / 78; Pulse 97; Resp 20; Temp 98.9(O); Pulse Ox 97% on R/A; Weight 53.52 kg / dwg 117.99 lbs; Height 5 ft. 7 in. (170.18 cm); Pain 6/10; 11:33 BP 122 / 74; Pulse 84; Resp 16; Temp 98.4(O); Pulse Ox 98% on R/A; Pain 0/10; ml6 07:55 Body Mass Index 18.48 (53.52 kg, 170.18 cm) dwg MDM: 08:13 Undress patient appropriately for examination ordered. fg 08:14 Basic Metabolic Profile Ordered. EDMS 08:14 CBC with Diff Ordered. EDMS 08:14 Lipase Ordered. EDMS 08:14 Liver Profile Ordered. EDMS 08:14 Urinalysis Ordered. EDMS 08:14 Urine Culture Ordered. EDMS 08:14 NOTHING BY MOUTH+DIET ordered. EDMS 08:57 Set up pelvic ordered. fg 08:58 Wet Prep Ordered. EDMS 08:58 -US Pelvic Non-Ob Complete Ordered. EDMS 08:58 GC & Chlamydia Amplification Ordered. EDMS 09:00 Financial registration complete. lg 09:43 Transvaginal NON- US Ordered. EDMS 09:43 DUPLEX SCAN LIMITED (DOPPLER) Ordered. EDMS 09:50 [facility] Payment Agreement was scanned into [employer] and attached to record. lg 15:05 T-Sheet-- Draft Copy was scanned into [employer] and attached to record. gb Signatures: Dispatcher [employer] EDMS Brissa Jurado, RN RN kcs Lavell Balderrama, RN RN dwg Mackenzie Navarro, Reg Reg gb Danika Pace, Reg Reg lg David Llanos RN RN ml6 Fara Truong MD MD fg The chart was reviewed and I authenticate all verbal orders and agree with the evaluation and treatment provided.Corrections: (The following items were deleted from the chart) 08:23 08:14 HCG, QUALITATIVE+LAB ordered. EDMS EDMS Attachments: 09:50 [facility] Payment Agreement lg 15:05 T-Sheet-- Draft Copy gb Chart Complete MTDD
== END 2016-07-10 11:34 | disposition home or self-care (01) ==
LOC: M ED 07:24
DX: N93.9 Abnormal uterine and vaginal bleeding, unspecified (principal); Z98.890 Other specified postprocedural states; N83.201 Unspecified ovarian cyst, right side

== ENCOUNTER 2017-11-07 17:33 | Outpatient (CLI) | payer OTHER ==
[2017-11-07 19:17] LABS: APPEARANCE, URINE HAZY (CLEAR); BACTERIA, URINE AUTO 1+ (NEGATIVE); BILIRUBIN, URINE AUTO NEGATIVE (NEGATIVE); BLOOD, URINE BLOOD NEGATIVE (NEGATIVE); COLOR, URINE YELLOW (YELLOW); GLUCOSE, URINE (UA) AUTO NEGATIVE (NEGATIVE); KETONE, URINE AUTO NEGATIVE (NEGATIVE); LEUKOCYTE ESTERASE, URINE AUTO 1+ (NEGATIVE); MUCUS, URINE SMALL (NEGATIVE); NITRITE, URINE AUTO NEGATIVE (NEGATIVE); PROTEIN, URINE AUTO NEGATIVE (NEGATIVE); RBC, URINE AUTO 1 /HPF (0-3); SPECIFIC GRAVITY URINE AUTO 1.018 (1.002-1.035); SQUAMOUS EPITHELIAL CELL UR AU 10 /HPF (0-6); WBC, URINE AUTO 2 /HPF (0-3)
[2017-11-07] MEDS: NITROFURANTOIN (MACROBID) 100 MG CAP PO (20:34)
== END 2017-11-07 20:35 | disposition home or self-care (01) ==
LOC: M LDO 17:33
DX: O36.8120 Decreased fetal movements, second trimester, not applicable or unspecified (principal); Z3A.20 20 weeks gestation of pregnancy; O26.892 Other specified pregnancy related conditions, second trimester; M54.5 Low back pain; O23.42 Unspecified infection of urinary tract in pregnancy, second trimester
CPT/HCPCS: G0463